=== PATIENT | female | born 1955 | race Caucasian/White ===

== ENCOUNTER 2022-12-06 12:57 | Emergency (ER) | payer MEDICARE, OTHER ==
[2022-12-06 13:09] VITALS: BP 136/80
[2022-12-06] MEDS ORDERED: IPRATROPIUM/ALBUTEROL 3 ML NEB INH STA (13:14)
--- NOTE | 2022-12-06 13:15 | ED Physician Documentation ---
PD HPI DYSPNEA - Stated complaint Stated Complaint: COUGH/FATIGUE - Chief complaint Chief Complaint: Resp - History obtained from History obtained from: Patient (67-year-old woman with history of asthma has had a dry hacking cough and shortness of breath for the last 10 days not associated with fevers, production of the cough, or chest pain. She has been using her budesonide and Ventolin with modest relief.) PD PAST MEDICAL HISTORY - Present Medications Home Medications: Ambulatory Orders Medication Instructions Recorded Confirmed Azithromycin [Zithromax] 1 tab PO DAILY #4 tab 12/06/22 guaiFENesin/CODEINE [Robitussin AC] 5 - 10 ml PO Q6H PRN #120 ml 12/06/22 predniSONE [Deltasone] 60 mg PO DAILY 5 Days #15 tablet 12/06/22 - Allergies Allergies/Adverse Reactions: Allergies Allergy/AdvReac Type Severity Reaction Status Date / Time No Known Drug Allergies Allergy Verified 12/06/22 13:08 PD ED PE NORMAL - Vitals Vital signs reviewed: Yes - General General: Alert and oriented X 3, Other (Frequent coughing) - Cardiac Cardiac: RRR, No murmur - Respiratory Respiratory: No respiratory distress, Other (Expiratory wheezing with moderate air movement.) - Psych Psych: Normal mood, Normal affect Results - Vitals Vitals: Vital Signs - 24 hr 12/06/22 12/06/22 13:02 13:27 Temperature 36.4 C L Heart Rate 77 84 Respiratory 20 20 Rate Blood Pressure 136/80 H O2 Saturation 97 Oxygen O2 Source Room air - Rads (name of study) Single view chest x-ray demonstrates bilateral parenchymal opacities suggestive of pneumonia, left worse than right, possibly a small left pleural eff Relevant Findings:: Final report received, EMP independent interpretation of test PD Medical Decision Making - ED course ED course: 67-year-old woman with asthma presents with exacerbation of same. Lungs sound more like an exacerbation than infection but her chest x-ray does suggest an infectious component. She requests a azithromycin by name. Also Will prescribe prednisone. Feeling better after a DuoNeb. Departure - Departure Disposition: 01 Home, Self Care Clinical Impression: Asthma, Pneumonia Condition: Good Record reviewed to determine appropriate education?: Yes Instructions: Asthma Dc, ED Pneumonia Adult Prescriptions: predniSONE [Deltasone] 60 mg PO DAILY 5 Days #15 tablet guaiFENesin/CODEINE [Robitussin AC] 5 - 10 ml PO Q6H PRN #120 ml PRN Reason: Cough Azithromycin [Zithromax] 1 tab PO DAILY #4 tab Comments: I sent your prescriptions electronically to [facility] in [place]. You do not need to take anymore azithromycin nor prednisone today as we gave you first doses here. Do not drink or drive while taking codeine-containing cough syrup. Call your doctor to arrange a follow-up appointment, make the next available appointment. In the interim, return anytime if worse or if new symptoms develop.
[2022-12-06] MEDS ORDERED: AZITHROMYCIN 250 MG TABLET PO STA (13:22)
[2022-12-06] MEDS ORDERED: predniSONE 20 MG TABLET PO STA (13:22)
--- NOTE | 2022-12-06 14:00 | XRAY Report ---
PROCEDURE: Chest 1 View X-Ray INDICATIONS: cough TECHNIQUE: One view of the chest was acquired. COMPARISON: None. FINDINGS: Surgical changes and devices: None. Lungs and pleura: There are bibasilar alveolar opacities, left greater than right. There may be a sm all left pleural effusion. Mediastinum: Mediastinal contours appear normal. Heart size is normal. Bones and chest wall: No suspicious bony lesions. Overlying soft tissues appear unremarkable. IMPRESSION: 1. Bilateral parenchymal opacities suggestive of pneumonia, left worse than right. 2. Possible small left pleural effusion. Reviewed by: Geraldine Lane MD on 12/06/2022 12:59 PM JOSEE Approved by: Geraldine Lane MD on 12/06/2022 12:59 PM JOSEE Station ID: [id number]
== END 2022-12-06 14:15 | disposition home or self-care (01) ==
LOC: ED 12:57
DX: J18.9 Pneumonia, unspecified organism (principal); J45.901 Unspecified asthma with (acute) exacerbation
CPT/HCPCS: 71045; 94640; 99283; 99284; A9270; J7512

== ENCOUNTER 2022-12-16 11:00 | Emergency (ER) | payer MEDICARE, OTHER ==
[2022-12-16 11:47] VITALS: BP 126/91
--- NOTE | 2022-12-16 12:12 | XRAY Report ---
PROCEDURE: Chest 2 View X-Ray INDICATIONS: cough; recent pna TECHNIQUE: 2 views of the chest were acquired. COMPARISON: Radiograph 11/28/2022. FINDINGS: Surgical changes and devices: None. Lungs and pleura: Pleural parenchymal bands within the lung bases, with trace residual left lower lo be consolidation. Mediastinum: Mediastinal contours appear normal. Heart size is normal. Bones and chest wall: No suspicious bony lesions. Overlying soft tissues appear unremarkable. IMPRESSION: Trace residual left lower lobe consolidation, which may indicate organized pneumonia, new pneumonia o r less likely mass. Consider outpatient CT for confirmation, unless otherwise indicated. Reviewed by: Tayo Baugh on 12/16/2022 12:11 PM PDT Approved by: Tayo Baugh on 12/16/2022 12:11 PM PDT Station ID: [id number]
--- NOTE | 2022-12-16 13:47 | ED Physician Documentation ---
History of Present Illness - Stated complaint Stated Complaint: COUGH/CHEST TIGHT - Chief complaint Chief Complaint: Resp - Additonal information Additional information: 67-year-old female presents emergency department for evaluation of persistent cough. Seen by my colleague in late November and found to have a pneumonia was started on azithromycin as well as prednisone. She reports that the cough fully resolved for about 4 to 5 days before it began again. She has had some subjective fevers at night. No hemoptysis. No exertional chest pain. She has no history of tobacco use. Patient is requesting a refill of the codeine which she felt resolved her cough. Review of Systems Constitutional: denies: Fever, Myalgias Respiratory: reports: Cough. denies: Dyspnea GI: reports: Reviewed and negative : reports: Reviewed and negative Skin: reports: Reviewed and negative PD PAST MEDICAL HISTORY - Present Medications Home Medications: Ambulatory Orders Medication Instructions Recorded Confirmed Azithromycin [Zithromax] 1 tab PO DAILY #4 tab 12/06/22 guaiFENesin/CODEINE [Robitussin AC] 5 - 10 ml PO Q6H PRN #120 ml 12/06/22 predniSONE [Deltasone] 60 mg PO DAILY 5 Days #15 tablet 12/06/22 Amox/Clav 875/125 [Augmentin] 1 each PO Q12H #14 tablet 12/16/22 Cefpodoxime Proxetil [Vantin] 100 mg PO Q12H #14 tablet 12/16/22 Codeine Phosphate/Guaifenesin 5 ml PO BID #60 ml 12/16/22 [Guaifen-Codeine 100-10 mg/5 ml] - Allergies Allergies/Adverse Reactions: Allergies Allergy/AdvReac Type Severity Reaction Status Date / Time No Known Drug Allergies Allergy Verified 12/16/22 11:47 PD ED PE NORMAL - General General: Alert and oriented X 3, No acute distress, Well developed/nourished - HEENT HEENT: Atraumatic - Cardiac Cardiac: RRR, No murmur - Respiratory Respiratory: No respiratory distress, Clear bilaterally - Abdomen Abdomen: Normal bowel sounds, Soft - Back Back: No CVA TTP - Derm Derm: Normal color, Warm and dry - Extremities Extremities: No deformity, No tenderness to palpate, Normal ROM s pain - Neuro Neuro: Alert and oriented X 3, 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 Consider outpatient CT) PD Medical Decision Making - ED course Complexity details: reviewed results, re-evaluated patient, d/w patient ED course: 59-year-old female presents emergency department for return of her cough that began about 5 days ago. Seen recently by my colleague at the end of November for cough and found to have lower lobe pneumonia and started on azithromycin. She also received prednisone. She reports the cough fully improved until about 6 days ago. On presentation today she did report some vague night sweats. She has no congestion. Cough is not worse at night and it is not orthopneic. A 2 view chest x-ray suggests a residual left lower lobe pneumonia though an organized mass or infection is not excluded. I discussed with patient that she would benefit from a CT for further evaluation of this but she would declined that today. She is going to attempt to establish with a primary care provider in the [place] region. She would like to try a second course of antibiotics for further management of the cough which I feel is reasonable at this juncture given the otherwise unremarkable exam. Departure - Departure Disposition: 01 Home, Self Care Clinical Impression: Cough Qualifiers: Cough type: acute Qualified Code(s): R05.1 - Acute cough Condition: Stable Record reviewed to determine appropriate education?: Yes Prescriptions: Amox/Clav 875/125 [Augmentin] 1 each PO Q12H #14 tablet Codeine Phosphate/Guaifenesin [Guaifen-Codeine 100-10 mg/5 ml] 5 ml PO BID #60 ml Cefpodoxime Proxetil [Vantin] 100 mg PO Q12H #14 tablet Comments: I sent a prescription for some new antibiotics to the [facility] in [place] as well as the cough medication. As discussed at the bedside it is important you have a CT scan completed of your chest at the completion of these antibiotics to ensure full resolution of the pneumonia. It is less likely that there is a consolidated lesion or mass underlying this. One of our local walk-in clinics in [place] can assist you in the follow-up and arrangement of this testing. Return immediately to the ER if you find that you have worsening symptoms despite the medications.
== END 2022-12-16 14:24 | disposition home or self-care (01) ==
LOC: ED 11:00
DX: R05.1 Acute cough (principal)
CPT/HCPCS: 93005; 99283; 99284